=== PATIENT | female | born 2005 | race Caucasian/White ===

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

== ENCOUNTER 2025-03-27 09:12 | Emergency (ER) | payer OTHER, SELFPAY ==
[2025-03-27 09:20] VITALS: BP 148/113; PULSE 124; RESP 18; TEMP 37.1; O2SAT 100
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
[2025-03-27 09:54] LABS: EDUAAPPEAR Clear; EDUABILI Negative (Negative); EDUABLOOD 2+ (Negative); EDUACOLOR1 Yellow; EDUAGLUCOSE Negative (Negative); EDUAKETONE Negative (Negative); EDUALEUKO Negative (Negative); EDUANITRATE Negative (Negative); EDUAPH 6.0; EDUAPROTEIN Negative (Negative); EDUASPGRAVITY 1.010; EDUAUROBILI 0.2
[2025-03-27 12:48] LABS: EDUAAPPEAR Clear; EDUABILI Negative (Negative); EDUABLOOD 2+ (Negative); EDUACOLOR1 Yellow; EDUAGLUCOSE Negative (Negative); EDUAKETONE Negative (Negative); EDUALEUKO Negative (Negative); EDUANITRATE Negative (Negative); EDUAPH 6.0; EDUAPROTEIN Negative (Negative); EDUASPGRAVITY 1.010; EDUAUROBILI 0.2
== END 2025-03-27 09:48 | disposition short-term general hospital (02) ==
PROVIDERS: Emergency Provider Nurse Practitioner Family
DX: K59.00 Constipation, unspecified (principal)
CPT/HCPCS: 81003; 99213; G0463

== ENCOUNTER 2025-03-27 10:22 | Emergency (ER) | payer OTHER, SELFPAY ==
--- NOTE | ~2025-03-27 | CT_ITS ---
CLINICAL INDICATION: Right flank pain COMPARISON: None. TECHNIQUE: Multiple contiguous axial images of the abdomen and pelvis were performed without the admi nistration of intravenous contrast The dose-length product (DLP) was 178.97 mGy-cm. Automated exposure control and iterative reconstruction technique were employed. FINDINGS/OBSERVATIONS: Visualized lower thorax: The bilateral lung bases are clear. The heart is of normal size, without pericardial effusion. Small hiatal hernia is present. Liver: The liver demonstrates homogeneous attenuation and is borderline enlarged measuring 19 cm in longitudinal dimension. Gallbladder and biliary system: The gallbladder is only minimally distended, and otherwise unremarkable. Pancreas: Limited evaluation of the pancreas secondary to the lack of intravenous contrast. Spleen: The spleen demonstrates homogeneous attenuation and is not enlarged measuring cm in longitudinal dime nsion. Kidneys: The bilateral kidneys are unremarkable, without hydronephrosis or renal calculi. Adrenal glands: Unremarkable. Gastrointestinal tract: Fecal stasis within the colon. Appendix: The appendix is not definitively visualized. However, no pericecal inflammatory change is identified suggest the presence of acute appendicitis. Vasculature: Unremarkable. Lymph nodes: Limited evaluation without intravenous contrast Pelvic structures: The bladder is only minimally distended, limiting its evaluation. The uterus is anteverted and anteflexed, and otherwise unremarkable. The ovaries are not visualized secondary to the lack of intrapelvic and intra-abdominal fat. Trace free fluid within the right hemipelvis, likely physiologic in a patient of this age. Body wall and musculoskeletal: No significant degenerative disease within the lower thoracic or lumbosacral spine. IMPRESSION: No obstructive uropathy. Trace free fluid within the right hemipelvis, likely physiologic in a patient of this age. Ultrasound examination can be performed for confirmation. Reviewed, dictated and finalized at location A. IMPRESSION: No obstructive uropathy. Trace free fluid within the right hemipelvis, likely physiologic in a patient o f this age. Ultrasound examination can be performed for confirmation.
--- NOTE | ~2025-03-27 | US_ITS ---
EXAM: PELVIC ULTRASOUND HISTORY: trace free fluid in pelvis on CT scan COMPARISON: None Locate for acute daycare and no rash okay I EXAM: PELVIC ULTRASOUND HISTORY: trace free fluid in pelvis on CT scan COMPARISON: CT examination of the abdomen and pelvis performed 1 hour earlier. FINDINGS: UTERUS: 7.4 x 2.3 x 2.2 cm. The uterus is anteverted and anteflexed. The endometrial complex measures 2.7 mm. RIGHT OVARY: The right ovary is unremarkable in echogenicity and size measuring 1.8 x 3.3 x 2.3 cm. Dopplerable flow is identified. LEFT OVARY: The left ovary is unremarkable in echogenicity and size measuring 1.8 x 1.2 x 2.3 cm Dopplerable flow is identified. Multiple follicles detected bilaterally, unremarkable for patient of this age. Simple free fluid is identified within the posterior cul-de-sac, likely physiologic. IMPRESSION: Simple free fluid within the posterior cul-de-sac, likely physiologic. Otherwise, unremarkable sonographic evaluation of the pelvis, as detailed above. Reviewed, dictated and finalized at location A. IMPRESSION: Simple free fluid within the posterior cul-de-sac, likely physiologic. Otherwise, unremarkable sonographic evaluation of the pelvis, as detailed above .
[2025-03-27 10:36] VITALS: BP 139/98; PULSE 79; RESP 18; TEMP 36.9; O2SAT 100
[2025-03-27 10:41] LABS: BEDSIDEPREGUCG Negative (Negative)
[2025-03-27 10:49] VITALS: O2SAT 100
--- OUTSIDE RECORDS SUMMARY | 2025-03-27 10:50 | XMS_ITS | Data Portability ---
Author Organization [facility] Address [address] [place] [address] Assessment No assessment recorded. Plan of Treatment Reminders Order Date Submit Date Provider Last Modified By Organization Details Last Modified Time Details Appointments None recorded. Lab None recorded. Referral None recorded. Procedures None recorded. Surgeries None recorded. Imaging None recorded. Medication Orders Dasetta 35 (28) 1 mg-35 mcg tablet 024 024 [facility] [address] [place], [address], 4 23:52:42 Patient TargetsNo targets recorded. Patient InstructionsNo instructions recorded. Reason for Referral None Reported. Procedures Surgical History Date Name Laterality Status Provider Name and Address Organization Details Recorded Time 2 procedure on hand completed Denisse Melvin [facility] 07/13/2024 15:42:44 Imaging Results None recorded. Procedure Notes None recorded. Medical Equipment None Reported. Allergies No known drug allergies Medications Name Sig Start Date Stop Date Status Note LastModified by Organization Details LastModified Time sulfamethox azole 800 mg-trimetho prim 160 mg tablet TAKE 1 TABLET BY MOUTH EVERY 12 HOURS FOR 7 DAYS 07/13 completed Not Available Not Available Not Available amoxicillin 875 mg tablet TAKE 1 TABLET BY MOUTH EVERY 12 HOURS 07/13 completed Not Available Not Available Not Available cephalexin 500 mg capsule TAKE 1 CAPSULE BY MOUTH EVERY 12 HOURS FOR 7 DAYS 07/13 completed Not Available Not Available Not Available sertraline 25 mg tablet TAKE 1 TABLET BY MOUTH ONCE DAILY 07/13 completed Not Available Not Available Not Available epinephrine 0.3 mg/0.3 mL injection, auto-inject or INJECT CONTENTS OF 1 PEN NEEDED FOR ALLERGIC REACTION 07/13 completed Not Available Not Available Not Available albuterol sulfate HFA 90 mcg/actuati on aerosol inhaler INHALE 2 PUFFS BY MOUTH EVERY 4 HOURS NEEDED active Not Available Not Available No t Available ondansetron 4 mg disintegrat ing tablet DISSOLVE 1 TABLET IN MOUTH EVERY 6 HOURS NEEDED FOR NAUSEA 07/13 completed Not Available Not Available Not Available sertraline 50 mg tablet TAKE 1 TABLET BY MOUTH ONCE DAILY 07/13 completed Not Available Not Available Not Available FeroSul 325 mg (65 mg iron) tablet TAKE 1 TABLET BY MOUTH TWICE DAILY WITH MORNING AND EVENING MEALS 07/13 completed Not Available Not Available Not Available Dasetta 35 (28) 1 mg-35 mcg tablet Take 1 tablet every day by oral route. active Not Available Not Available No t Available Vitals Date Recorded Body height Body mass index (BMI) Body mass index (BMI) [Percentile] Per age and sex Body weight Systolic And Diastolic Provider Name and Address Organization Details Last Updated DateTime 07/13/2024 165.1 cm 17.8 kg/m2 6 % 89793.3 8 g 118/84 mm[Hg] Denisse Melvin [facility] 4 15:49:20 Social History Question Answer Notes LastModified by Organizat ion Details LastModified Time Are You Blind Or Do You Have Difficulty Seeing? No Information not available 07/13/2024 In The 14 Days Before Symptom Onset, Have You Had Close Contact With A Laboratory-confirmed COVID-19 While That Case Was Ill? No Information not available 07/13/2024 In The 14 Days Before Symptom Onset, Have You Had Close Contact With A Person Who Is Under Investigation For COVID-19 While That Person Was Ill? No [email or web address] Information not available 07/13/2024 Have You Been To An Area Known To Be High Risk For COVID-19? No [email or web address] Information not available 07/13/2024 Are You Deaf Or Do You Have Serious Difficulty Hearing? No [email or web address] Information not available 07/13/2024 Do You Have Smoke And Carbon Monoxide Detectors In Your Home? Yes [email or web address] Information not available 07/13/2024 Do You Use Sunscreen Routinely? Yes Information not available 07/13/2024 Do You Have Difficulty Walking Or Climbing Stairs? No [email or web address] Information not available 07/13/2024 Sex: Unknown Functional Status Question Answer Note LastModified by Organizat ion Details LastModified Time Are you able to walk? [email or web address] Information not available 07/13/2024 Are you able to care for yourself independently? Yes [email or web address] Information not available 07/13/2024 Do you have difficulty dressing, bathing, grooming, or toileting? No [email or web address] Information not available 07/13/2024 Mental Status None recorded. Family History Relationship Description Onset Age of this Age Resolved Age Notes LastModified by Organization Details LastModified Time Paternal Grandfather Diabetes mellitus [email or web address] Not available 2023 15:50:22 Paternal Grandfather Hypertensive disorder [email or web address] Not available 2023 15:51:03 Paternal Uncle Diabetes mellitus [email or web address] Not available 2023 15:50:32 Paternal Uncle Hypertensive disorder Not available 2023 15:51:03 Father Hypertensive disorder [email or web address] Not available 2023 15:51:02 Paternal Aunt Hypertensive disorder [email or web address] Not available 2023 15:51:03 Medical History No medical history recorded. Gynecological History Statement/Question Response Flow Moderate Date of LMP 07/04/2024 Was last menstrual period normal Y HPV Vaccine Y Duration of Flow (days) 5 Current Control Method BCPs Date of control Are cycles usually normal Y Frequency of Cycle (Q days) 28 Sexually Active? Y Menses Monthly Y Age of first menstrual cycle 13 Date of Last Pap Smear LMP Approximate Obstetrics History GPAL:G 0 P 0 0 0 0 Past Encounters Encounter ID Performer Location Encounter Start Date Encounter Closed Date Diagnosis/Indication Diagnosis SNOMED-CT Code Diagnosis ICD10 Code Diagnosis Note [id number] AVILA RZEA MD [place] [address] [address] 07/13/2024 15:20:32 07/14/2024 09:15:22 Gynecologic examination 03219818 Z01.419 [facility] care- Cervical cancer screening: Pap smear not indicated (start age 21)- Breast cancer screening: mammogram not indicated- Colon cancer screening: not indicated- HPV immunizati on: received- STD testing: declined- hereditary cancer screening: does not qualify for testing- contracept ion: OCPs Health Concerns Section Related Observation LastModified by Organization Detai ls LastModified Time None Recorded Concern Status LastModified by Organization Details LastModified Time None Recorded Advance Directives Directive None Recorded Payers Insurance Date Sequence Insurance Name Policy Number Policy Hill Covered Member ID Hill Member ID Guarantor Name 07/13/2024 1 [facility] (MEDICAID HMO) [id number] Silvia Prakash [id number] Silvia Prakash OBGyn Episode No OBEpisode recorded.
--- OUTSIDE RECORDS SUMMARY | 2025-03-27 10:50 | XMS_ITS | Encounter Summary ---
Author Organization [facility] Address [address] [place] [address] [place] [address] Care Team Providers Care Mammography Tech Name Role Phone Abena Hess MD Unavailable Zohra Edmonds MD Primary Care Provider [phone] Zohra Edmonds MD Unavailable [phone] Zohra Edmonds MD Unavailable [phone] Encounter Details Date Type Department Care Team (Late st Contact Info) Description 03/04/2016 [facility] Outpatient Visit [facility] - Pediatric[facility] [address] [place] [phone] Zohra Edmonds MD [address] [place] [phone] Social History Tobacco Use Types Packs/Day Years Used Date Smoking Tobacco: Never Assessed Comments Unknown Sex and Gender Information Value Date Recorded Sex Assigned at Not on file 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 Gender Identity Not on file Sexual Orientation Not on file documented as of this encounter Plan of Treatment Not on file documented as of this encounter Visit Diagnoses Not on filedocumented in this encounter Additional Health Concerns Infection Onset Date Last Indicated Resolved Time COVID-19 Under Investigation 09/03/2021 09/03/2021 09/03/2021 12:09 PM 

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
[2025-03-27 10:58] LABS: Hematocrit 44.0 % (37.0-47.0); Hemoglobin 14.6 g/dL (12.0-15.0); Immature Granulocyte Percent A 0.2 % (0-0.5); Lymphocytes Absolute Auto 1.58 K/mm3 (0.9-3.2); Mean Corpuscular HGB Conc 33.2 g/dl (32-36); Mean Corpuscular Hemoglobin 29.1 pg (26-34); Mean Corpuscular Volume 87.6 fl (80-100); Nucleated Red Blood Cells Absolute Auto 0.000 K/mm3 (0.0-0.012); Nucleated Red Blood Cells Perc 0.0 % (0.0-0.2); Platelet Count Result 330 k/mm3 (150-375); Red Blood Count 5.02 M/mm3 (4.2-5.4); White Blood Count 13.1 K/mm3 (4.5-10.0)
[2025-03-27 11:00] VITALS: O2SAT 98
[2025-03-27 11:03] LABS: Add Urine Microscopic? YES; Appearance Urine Clear (Clear); Glucose Urine UA Negative (Negative); Leukocyte Esterase Ur Trace LEU/UL (Negative); Nitrate Urine Negative (Negative); Non Pathogenic Casts 0-2; Specific Grav Ur 1.018 (1.001-1.035)
[2025-03-27 11:04] VITALS: BP 144/98; O2SAT 100
[2025-03-27 11:15] VITALS: O2SAT 98
[2025-03-27 11:16] VITALS: BP 129/86; O2SAT 97
[2025-03-27 11:17] LABS: Alanine Aminotransferase 17 U/L (6-35); Albumin Level 4.7 g/dL (3.7-5.6); Alkaline Phosphatase 57 U/L (45-116); Anion Gap 11 mmol/L (4-12); Aspartate Amino Transferase 32 U/L (14-36); Bilirubin,Total 1.7 mg/dL (0.2-1.3); Blood Urea Nitrogen 9 mg/dL (8-21); Calcium 9.9 mg/dL (8.9-10.7); Carbon Dioxide 22 mmol/L (22-30); Chloride 106 mmol/L (98-107); Estimated CRCL calculation 72 ml/min; Estimated Glomerular Filt Rate > 60; Glucose 119 mg/dL (65-110); Potassium 3.8 mmol/L (3.4-5.0); Sodium 139 mmol/L (134-143); Total Protein 8.9 g/dL (6.3-8.6)
--- NOTE | 2025-03-27 12:01 | ED_ITS ---
HPI - Female Genitourinary General Chief complaint: Urogenital-Female Stated complaint: right flank pain, hematuria Time Seen by Provider: 03/27/25 10:34 History of Present Illness HPI Narrative: Patient is a 19-year-old female presents to the with complaints of right flank pain. She reports the pain started yesterday morning. Patient reports the pain is on the right lower side of her back and radiates to her belly. She reports she went to urgent care earlier today who advised her to come to the ER for further evaluation. Patient reports her last bowel movement was yesterday and was normal for her. She reports she has had UTIs in the past and endorses hand surgery. Otherwise patient has no medical history relevant to this ER visit. Related Data Home Medications ?Medication ?Instructions ?Recorded ?Confirmed ?Last Taken ?Type norethindrone 1 mg-ethinyl 1 tablet PO DAILY 04/23/24 03/27/25 Unknown History estradiol 35 mcg tablet (Dasetta) Allergies Allergy/AdvReac Type Severity Reaction Status Date / Time No Known Allergies Allergy Verified 03/27/25 10:39 Review of Systems 2 Review of Systems: All systems reviewed & are unremarkable except as noted in HPI and below PMFSH Past Medical History Medical History No significant medical problems Surgical History Surgical History No pertinent past surgical history Exam 2 Narrative: GENERAL: Ill ll appearing, well-nourished, non-toxic, in acute distress due to pain. HEAD: Normocephalic, atraumatic. NECK: Supple. No adenopathy, no masses. RESPIRATORY: Airway patent, respirations nonlabored. Clear to auscultation bilaterally, no rales, rhonchi, wheezing. CARDIOVASCULAR: Regular rate and rhythm without murmurs, rubs, or gallops. Peripheral pulses 2+ and equal bilaterally. + R sided CVA tenderness ABDOMINAL: Soft, nontender, nondistended, no hepatosplenomegaly. Normoactive BS. MUSCULOSKELETAL: Moves all extremities. Strength/ROM intact without gross deformities. SKIN: Warm, dry, normal color. No rashes. NEURO: A&O X3. Speech clear. Cranial nerves II-XII intact. No ataxic movements. PSYCHIATRIC: Appropriate mood and affect. Normal interaction. Course Vital Signs Vital signs: Vital Signs Temperature 36.9 C 03/27/25 10:36 Pulse Rate 79 03/27/25 10:36 Respiratory Rate 18 03/27/25 10:36 Blood Pressure 139/98 H 03/27/25 10:36 Pulse Oximetry 100 03/27/25 10:36 Oxygen Delivery Room Air 03/27/25 10:36 Temperature 36.9 C 03/27/25 10:36 Pulse Rate 79 03/27/25 10:36 Respiratory Rate 18 03/27/25 10:36 Blood Pressure 129/86 03/27/25 11:16 Pulse Oximetry 97 03/27/25 11:16 Oxygen Delivery Room Air 03/27/25 10:36 MDM - Female Genitourinary MDM Narrative Medical decision making narrative: Patient is a 19-year-old female presents to the with complaints of right flank pain. She reports the pain started yesterday morning. Patient reports the pain is on the right lower side of her back and radiates to her belly. She reports she went to urgent care earlier today who advised her to come to the ER for further evaluation. Patient reports her last bowel movement was yesterday and was normal for her. She reports she has had UTIs in the past and endorses hand surgery. Otherwise patient has no medical history relevant to this ER visit. Labs Ordered: CBC, CMP, UA Imaging Ordered: CT abdomen pelvis, pelvic ultrasound Medications Ordered: 1 L normal saline IV bolus, Toradol IV, morphine 4 mg IV, [place] p.o. Results: Patient's pelvic ultrasound indicates Simple free fluid within the posterior cul-de-sac, likely physiologic. Otherwise, unremarkable sonographic evaluation of the pelvis, as detailed above. Patient's CT scan indicates No obstructive uropathy. Trace free fluid within the right hemipelvis, likely physiologic in a patient of this age. Ultrasound examination can be performed for confirmation. Fecal stasis. Diagnosis: Constipation, right flank pain Patient Education/Shared MDM: Results of lab work and imaging shared with patient. She endorses mild improvement of symptoms following medication administration. Patient strongly advised to maintain hydration status upon discharge and follow-up with her PCP as soon as possible. She will be discharged home with MiraLax and magnesium citrate. Patient will also be discharged home with ibuprofen 800 mg. Strict return precautions provided. Patient verbalized understanding and is in agreement with plan. Vital signs stable at time of discharge. All questions answered. Differential Diagnosis Differential diagnosis: Likely urinary tract infection and other (Pyelonephritis, kidney stone, cystitis) Lab Data Attestation: I reviewed the patient's lab results. 03/27/25 10:51 03/27/25 10:51 Labs: Lab Results 03/27/25 03/27/25 Range/Units 10:34 10:51 WBC 13.1 H (4.5-10.0) K/mm3 RBC 5.02 (4.2-5.4) M/mm3 Hgb 14.6 (12.0-15.0) g/dL Hct 44.0 (37.0-47.0) % MCV 87.6 (80-100) fl MCH 29.1 (26-34) pg MCHC 33.2 (32-36) g/dl RDW 12.7 (11.5-14.5) % Plt Count 330 (150-375) k/mm3 MPV 9.8 (7.4-10.4) fl Immature Gran % (Auto) 0.2 (0-0.5) % Neut % (Auto) 81.2 H (45.5-73.1) % Lymph % (Auto) 12.1 L (18.3-44.2) % [place] % (Auto) 6.2 (2.6-8.5) % Eos % (Auto) 0.0 (0-4.4) % Baso % (Auto) 0.3 (0.2-1.2) % Lymph # (Auto) 1.58 (0.9-3.2) K/mm3 [place] # (Auto) 0.8 H (0.1-0.6) K/mm3 Eos # (Auto) 0.0 (0-0.3) K/mm3 Baso # (Auto) 0.0 (0.0-0.1) K/mm3 Abs Immat Gran (auto) 0.03 (0.00-0.031) K/mm3 Absolute Neuts (auto) 10.6 H (1.3-6.7) K/mm3 Absolute Nucleated RBC 0.000 (0.0-0.012) K/mm3 Nucleated RBC % 0.0 (0.0-0.2) % Sodium 139 (134-143) mmol/L Potassium 3.8 (3.4-5.0) mmol/L Chloride 106 (98-107) mmol/L Carbon Dioxide 22 (22-30) mmol/L Anion Gap 11 (4-12) mmol/L BUN 9 (8-21) mg/dL Creatinine 0.90 (0.7-1.0) mg/dL Estim Creat Clear Calc 72 ml/min Estimated GFR > 60 (59 - ) Glucose 119 H (65-110) mg/dL Calcium 9.9 (8.9-10.7) mg/dL Total Bilirubin 1.7 H (0.2-1.3) mg/dL AST 32 (14-36) U/L ALT 17 (6-35) U/L Alkaline Phosphatase 57 (45-116) U/L Total Protein 8.9 H (6.3-8.6) g/dL Albumin 4.7 (3.7-5.6) g/dL Urine Color Yellow (Yellow) Urine Appearance Clear (Clear) Urine pH 5.5 (5.0-9.0) Ur Specific [place] 1.018 (1.001-1.035) Urine Protein Trace (Negative) mg/dL Urine Glucose (UA) Negative (Negative) mg/dL Urine Ketones Trace H (Negative) mg/dL Ur Blood (Man) 2+ H (Negative) Urine Nitrate Negative (Negative) Urine Bilirubin Negative (Negative) Urine Urobilinogen 0.2 (<2.0) mg/dL Leukocyte Esterase Rfl Trace H (Negative) YENNI/UL Urine RBC 0-2 (0-2) /hpf Urine WBC 0-5 (0-3) /hpf Ur Squamous Epith Cells Few (Few) /hpf Urine Bacteria Rare /hpf Urine Casts 0-2 POC Urine HCG, Qual Negative (Negative) Imaging Data Attestation: I personally reviewed and interpreted this imaging study as follows: Radiologist's impression: Impressions Abdomen/Pelvis CT 03/27/25 12:46 IMPRESSION: No obstructive uropathy. Trace free fluid within the right hemipelvis, likely physiologic in a patient of this age. Ultrasound examination can be performed for confirmation. Pelvis Ultrasound 03/27/25 14:06 IMPRESSION: Simple free fluid within the posterior cul-de-sac, likely physiologic. Otherwise, unremarkable sonographic evaluation of the pelvis, as detailed above. Discharge Plan Discharge Clinical Impression: Acute right flank pain, Constipation Patient Disposition: Home Condition: Stable Instructions: Antibiotic Form, Constipation (ED), Flank Pain (ED) Additional Instructions: Please return to the ER with any worsening symptoms. Follow-up with primary care provider as soon as possible. Take all medications as prescribed. You may take Tylenol and ibuprofen together for pain control. Please take MiraLax to help produce a bowel movement. Patient Language: Thai Prescriptions: New ibuprofen 800 mg tablet 800 mg PO TID PRN (Reason: pain) Qty: 60 0RF polyethylene glycol 3350 [GentleLax] 17 gram/dose powder 17 g PO BID Qty: 238 0RF magnesium citrate Solution 150 ml PO DAILY PRN (Reason: constipation) Qty: 296 0RF No Action Dasetta () 1-35 mg-mcg tablet 1 tablet PO DAILY Follow-up/Referrals: PHYSICIAN,[employer] [facility] [Primary Care Provider] - Time of Disposition: 16:20
[2025-03-27] MEDS: SODIUM CHLORIDE 0.9% IV 1,000 ML 999 ML IV CONT (12:09)
[2025-03-27] MEDS: MORPHINE SULFATE (*CRX) 4 MG/ML INJ IV PUSH (12:09)
[2025-03-27] MEDS: KETOROLAC 15 MG/ML VIAL (*BKC) IV PUSH (13:23)
[2025-03-27] MEDS: HYDROcodone/acetaminophen (*CRX) 5-325 MG TABLET 1 TAB PO (15:14)
--- NOTE | 2025-03-27 16:33 | PC.NURSE ---
Lidocaine patch placed on right hip per MD order. Patient given work note and discharge paperwork.
== END 2025-03-27 16:35 | disposition home or self-care (01) ==
PROVIDERS: Emergency Provider Registered Nurse
DX: K59.00 Constipation, unspecified (principal); R10.9 Unspecified abdominal pain
CPT/HCPCS: 36415; 74176; 76856; 80053; 81001; 81025; 85025; 96361; 96374; 96375; 99284; A9270; J1885; J2270; J7030

== ENCOUNTER 2025-04-26 18:20 | Emergency (ER) | payer SELFPAY ==
[2025-04-26 18:24] VITALS: BP 142/90; PULSE 103; RESP 18; TEMP 36.3; O2SAT 100
--- NOTE | 2025-04-26 18:48 | ED_ITS ---
HPI - Psych General Chief Complaint: Psychiatric Symptoms Stated Complaint: SI Time Seen by Provider: 04/26/25 18:48 History of Present Illness HPI Narrative: Patient is a 19-year-old female who presents to the ER with statements of wanting to hurt herself prior to arrival. She reports she and her boyfriend got into an argument and he left the house. Patient reports she went looking for him in her car. When they reconnected they got into a verbal argument and patient made statements about wanting to kill herself. At the time of examination she reports she does not want to hurt herself but also reports she DID NOT make the statements to get attention. Patient reports she was not sure how she is going to hurt herself but reports ?the electroencephalograph technologist took my knife away. She reports she has had suicide attempts in the past. Patient also endorses a history of anemia, depression, and anxiety. She denies HI or SI at time of examination. Related Data Home Medications ?Medication ?Instructions ?Recorded ?Confirmed ?Last Taken ?Type norethindrone 1 mg-ethinyl 1 tablet PO DAILY 04/23/24 03/27/25 Unknown History estradiol 35 mcg tablet (Dasetta) Allergies Allergy/AdvReac Type Severity Reaction Status Date / Time No Known Allergies Allergy Verified 04/26/25 18:29 Review of Systems 2 Review of Systems: All systems reviewed & are unremarkable except as noted in HPI and below PMFSH Past Medical History Medical History No significant medical problems Surgical History Surgical History No pertinent past surgical history Social History Social History Substance use type: does not use Exam 2 Narrative: GENERAL: Well appearing, well-nourished, non-toxic, in no acute distress. HEAD: Normocephalic, atraumatic. NECK: Supple. No adenopathy, no masses. RESPIRATORY: Airway patent, respirations nonlabored. Clear to auscultation bilaterally, no rales, rhonchi, wheezing. CARDIOVASCULAR: Regular rate and rhythm without murmurs, rubs, or gallops. Peripheral pulses 2+ and equal bilaterally. ABDOMINAL: Soft, nontender, nondistended, no hepatosplenomegaly. Normoactive BS. MUSCULOSKELETAL: Moves all extremities. Strength/ROM intact without gross deformities. SKIN: Warm, dry, normal color. No rashes. NEURO: A&O X3. Speech clear. Cranial nerves II-XII intact. No ataxic movements. PSYCHIATRIC: Tearful. Normal interaction. Course Vital Signs Vital signs: Vital Signs Temperature 36.3 C L 04/26/25 18:24 Pulse Rate 103 H 04/26/25 18:24 Respiratory Rate 18 04/26/25 18:24 Blood Pressure 142/90 H 04/26/25 18:24 Pulse Oximetry 100 04/26/25 18:24 Oxygen Delivery Room Air 04/26/25 18:24 Temperature 36.3 C L 04/26/25 18:24 Pulse Rate 103 H 04/26/25 18:24 Respiratory Rate 18 04/26/25 18:24 Blood Pressure 142/90 H 04/26/25 18:24 Pulse Oximetry 100 04/26/25 18:24 Oxygen Delivery Room Air 04/26/25 18:24 MDM - Psych MDM Narrative Medical decision making narrative: Patient is a 19-year-old female who presents to the ER with statements of wanting to hurt herself prior to arrival. She reports she and her boyfriend got into an argument and he left the house. Patient reports she went looking for him in her car. When they reconnected they got into a verbal argument and patient made statements about wanting to kill herself. At the time of examination she reports she does not want to hurt herself but also reports she DID NOT make the statements to get attention. Patient reports she was not sure how she is going to hurt herself but reports ?the electroencephalograph technologist took my knife away. She reports she has had suicide attempts in the past. Patient also endorses a history of anemia, depression, and anxiety. She denies HI or SI at time of examination. 2015- Pt is medically cleared for psychiatric intake. Patient has chosen to refuse further care. Risks of an incomplete evaluation and treatment were discussed with the patient, including potential for or permanent disability. Patient seems to understand these risks, but still desires to refuse further care. Patient recommended to follow up with PCP in the next possible interval. Specifically, patient was told they can return to the ED at any time to resume care. She continues to deny HI or SI. Patient is alert and oriented x4. Differential Diagnosis Differential diagnosis: Likely acute psychosis, suicidal ideation, bipolar disorder, depression, drug-induced psychotic disorder and acute anxiety Lab Data Attestation: I reviewed the patient's lab results. 04/26/25 18:57 04/26/25 18:57 Labs: Lab Results 04/26/25 04/26/25 Range/Units 18:57 19:03 WBC 9.2 (4.5-10.0) K/mm3 RBC 4.78 (4.2-5.4) M/mm3 Hgb 13.7 (12.0-15.0) g/dL Hct 41.7 (37.0-47.0) % MCV 87.2 (80-100) fl MCH 28.7 (26-34) pg MCHC 32.9 (32-36) g/dl RDW 12.8 (11.5-14.5) % Plt Count 298 (150-375) k/mm3 MPV 9.3 (7.4-10.4) fl Immature Gran % (Auto) 0.2 (0-0.5) % Neut % (Auto) 70.0 (45.5-73.1) % Lymph % (Auto) 21.1 (18.3-44.2) % [place] % (Auto) 8.4 (2.6-8.5) % Eos % (Auto) 0.1 (0-4.4) % Baso % (Auto) 0.2 (0.2-1.2) % Lymph # (Auto) 1.95 (0.9-3.2) K/mm3 [place] # (Auto) 0.8 H (0.1-0.6) K/mm3 Eos # (Auto) 0.0 (0-0.3) K/mm3 Baso # (Auto) 0.0 (0.0-0.1) K/mm3 Abs Immat Gran (auto) 0.02 (0.00-0.031) K/mm3 Absolute Neuts (auto) 6.5 (1.3-6.7) K/mm3 Absolute Nucleated RBC 0.000 (0.0-0.012) K/mm3 Nucleated RBC % 0.0 (0.0-0.2) % Sodium 139 (134-143) mmol/L Potassium 3.8 (3.4-5.0) mmol/L Chloride 106 (98-107) mmol/L Carbon Dioxide 23 (22-30) mmol/L Anion Gap 10 (4-12) mmol/L BUN 16 (8-21) mg/dL Creatinine 0.82 (0.7-1.0) mg/dL Estim Creat Clear Calc 80 ml/min Estimated GFR > 60 (59 - ) Glucose 75 (65-110) mg/dL Calcium 10.0 (8.9-10.7) mg/dL Total Bilirubin 0.8 (0.2-1.3) mg/dL AST 36 (14-36) U/L ALT 19 (6-35) U/L Alkaline Phosphatase 51 (45-116) U/L Total Protein 8.4 (6.3-8.6) g/dL Albumin 4.7 (3.7-5.6) g/dL TSH 0.733 (0.465-4.680) uIU/mL Urine Color Yellow (Yellow) Urine Appearance Clear (Clear) Urine pH 6.0 (5.0-9.0) Ur Specific [place] 1.015 (1.001-1.035) Urine Protein Negative (Negative) mg/dL Urine Glucose (UA) Negative (Negative) mg/dL Urine Ketones Negative (Negative) mg/dL Ur Blood (Man) Negative (Negative) Urine Nitrate Negative (Negative) Urine Bilirubin Negative (Negative) Urine Urobilinogen 0.2 (<2.0) mg/dL Leukocyte Esterase Rfl Negative (Negative) YENNI/UL Urine Test Negative Salicylates < 1.0 L (2-20) mg/dL Urine Opiates Screen Negative (Negative) Urine Methadone Screen Negative (Negative) Acetaminophen < 10 L (10-30) ug/mL Ur Barbiturates Screen Negative (Negative) Ur Phencyclidine Scrn Negative (Negative) Ur Amphetamine Screen Negative (Negative) U Benzodiazepines Scrn Negative (Negative) Urine Cocaine Screen Negative (Negative) U Cannabinoids Screen Positive A (Negative) Ethyl Alcohol < 10 (<10) mg/dL Discharge Plan Discharge Clinical Impression: Depression Patient Disposition: Left Against Medical Advice Condition: Stable Patient Language: Kittitian Prescriptions: No Action Dasetta 1/35 (28) 1-35 mg-mcg tablet 1 tablet PO DAILY ibuprofen 800 mg tablet 800 mg PO TID PRN (Reason: pain) Qty: 60 0RF polyethylene glycol 3350 [GentleLax] 17 gram/dose powder 17 g PO BID Qty: 238 0RF magnesium citrate Solution 150 ml PO DAILY PRN (Reason: constipation) Qty: 296 0RF 1st Medx-Patch With Lidocaine 4-20-0.025-5 % adhesive patch,medicated 1 patch topical .q12 Qty: 10 0RF Follow-up/Referrals: PHYSICIAN,S[employer] [facility]ARER [Primary Care Provider, Internal Medicine]
[2025-04-26 19:15] LABS: Hematocrit 41.7 % (37.0-47.0); Hemoglobin 13.7 g/dL (12.0-15.0); Immature Granulocyte Percent A 0.2 % (0-0.5); Lymphocytes Absolute Auto 1.95 K/mm3 (0.9-3.2); Mean Corpuscular HGB Conc 32.9 g/dl (32-36); Mean Corpuscular Hemoglobin 28.7 pg (26-34); Mean Corpuscular Volume 87.2 fl (80-100); Nucleated Red Blood Cells Absolute Auto 0.000 K/mm3 (0.0-0.012); Nucleated Red Blood Cells Perc 0.0 % (0.0-0.2); Platelet Count Result 298 k/mm3 (150-375); Red Blood Count 4.78 M/mm3 (4.2-5.4); White Blood Count 9.2 K/mm3 (4.5-10.0)
[2025-04-26 19:25] LABS: Alanine Aminotransferase 19 U/L (6-35); Albumin Level 4.7 g/dL (3.7-5.6); Alkaline Phosphatase 51 U/L (45-116); Anion Gap 10 mmol/L (4-12); Aspartate Amino Transferase 36 U/L (14-36); Bilirubin,Total 0.8 mg/dL (0.2-1.3); Blood Urea Nitrogen 16 mg/dL (8-21); Calcium 10.0 mg/dL (8.9-10.7); Carbon Dioxide 23 mmol/L (22-30); Chloride 106 mmol/L (98-107); Estimated CRCL calculation 80 ml/min; Estimated Glomerular Filt Rate > 60; Glucose 75 mg/dL (65-110); Potassium 3.8 mmol/L (3.4-5.0); Sodium 139 mmol/L (134-143); Total Protein 8.4 g/dL (6.3-8.6)
[2025-04-26 19:26] LABS: Acetaminophen < 10 ug/mL (10-30); Salicylate < 1.0 mg/dL (2-20)
[2025-04-26 19:40] LABS: Cannabinoid Screen Urine Positive (Negative)
[2025-04-26 19:52] LABS: Add Urine Microscopic? NO; Appearance Urine Clear (Clear); Glucose Urine UA Negative (Negative); Leukocyte Esterase Ur Negative LEU/UL (Negative); Nitrate Urine Negative (Negative); Specific Grav Ur 1.015 (1.001-1.035)
[2025-04-26 19:57] LABS: Thyroid Stimulating Hormone 0.733 uIU/mL (0.465-4.680)
[2025-04-26 20:17] LABS: Pregnancy On Board Control Positive
--- NOTE | 2025-04-26 20:27 | PC.NURSE ---
BEC[facility] denied pt. Crisis called
[2025-04-26 21:22] VITALS: BP 142/90; PULSE 103; RESP 18; TEMP 36.3; O2SAT 100
== END 2025-04-26 21:24 | disposition left against medical advice (07) ==
PROVIDERS: Emergency Provider Registered Nurse
DX: F32.A Depression, unspecified (principal); F41.9 Anxiety disorder, unspecified; Z86.2 Personal history of diseases of the blood and blood-forming organs and certain disorders involving the immune mechanism; Z79.3 Long term (current) use of hormonal contraceptives
CPT/HCPCS: 36415; 80053; 80143; 80179; 80307; 81003; 81025; 82077; 84443; 85025; 99284